=== PATIENT | male | born 1990 | race Caucasian/White ===

== ENCOUNTER 2017-08-01 12:45 | Emergency (ER) | payer OTHER ==
[~2017-08-01] VITALS: Ht 188 cm; Wt 100.0 kg
[2017-08-01 12:47] VITALS: BP 131/77; PULSE 67; RESP 18; O2SAT 98
--- NOTE | 2017-08-01 14:09 | ED.REPORT ---
HPI-General Illness Date of Service Aug 01, 2017 ED Provider: Alverto Baker MD Patient is a 26 year old male who presents to the ED requesting Suboxone. The patient reports that he is trying to get off Kratom. He was started on Suboxone on 07/26/17 with a plan to schedule a follow up appointment. Patient states that he wasn't able to schedule a follow up and is now out of Suboxone because he was having to take more than the prescribed dose to help with his symptoms. He has no other complaints at this time. Nursing Notes Stated Complaint: NEEDS SUBOXONE Chief Complaint: Substance Abuse Nursing Notes Reviewed: Yes Allergies: Coded Allergies: No Known Allergies (Unverified , 08/01/17) General Time Seen by MD: 14:06 Chief Complaint Medication refill Hx Obtained From: Patient Arrived By: Walk-in Sudden in Onset?: Yes Severity: Current: No pain currently Similar Sx Previous: No Past Medical History Past Medical History none reported Social History Drug Use: Other Ambulatory Status Independent Review of Systems Full Review of Systems Constitutional: Denies: Chills, Fever Respiratory: Denies: Non-productive cough, Shortness of breath Skin: Denies Itching, Denies Rash Neurologic: Reports: Headache Complete sys rev & neg: except as marked. Physical Exam Vital Signs Vital Signs Date Time Temp Pulse Resp B/P Pulse Ox O2 Delivery O2 Flow Rate FiO2 08/01/17 12:47 36.8 67 18 131/77 98 Room Air Initial VS: Reviewed General/Constitutional: Awake, Alert, No acute distress Head / Eyes: Atraumatic, Normocephalic, PERRL, EOMI Respiratory / Chest: Atraumatic, No respiratory distress Upper Extremities Upper Extremity / MS: Atraumatic, Full range of motion Skin: Atraumatic, Color NL, No rash, Warm, Dry Neurologic: Oriented X3, Speech NL Psychiatric: Affect NL, Mood NL Re-Eval/Medical Decision Time of Eval: 14:15 Re-Evaluation/Progress Note: Discussed plan for outpatient follow up. Patient understands and agrees to plan. All questions were addressed. Counseled Regarding: Diagnosis, Need for follow-up, When/why to return to ED Discharge & Departure Primary Impression: Medication refill Disposition: Home Discharge Condition All VS Reviewed: Yes Condition: Stable Additional Instructions: Call [facility] tomorrow morning to schedule a follow up appointment. Take Suboxone as prescribed. #5 tabs prescribed. Take 1.5 daily. Return to the emergency department if you develop any new or concerning symptoms. Referrals: [facility] (PCP) [facility] Kristin Attestation Portions of this note were transcribed by Kiya Myrick. I, Dr. Baker personally performed the history, physical exam and medical decision-making; I reviewed and confirmed the accuracy of the information in the transcribed note. Signed by: Kristin Jaramillo, 08/01/17 Alverto Baker MD Aug 01, 2017 14:09 Maddy Myrick Aug 01, 2017 14:17 Maddy Myrick Aug 01, 2017 14:17
[2017-08-01 14:29] VITALS: BP 124/72; PULSE 63; RESP 18; O2SAT 98
== END 2017-08-01 14:31 | disposition home or self-care (01) ==
LOC: SED 12:45
DX: F11.10 Opioid abuse, uncomplicated (principal); Z76.0 Encounter for issue of repeat prescription